=== PATIENT | male | born 1950 | race Caucasian/White ===

== ENCOUNTER → 2016-09-05 09:06 | Outpatient (CLI) | payer MEDICARE, BC ==
[2015-06-27 06:21] VITALS: BMI 24.4
[~2016-09-05 09:06] MED LIST: ASPIRIN EC81 M1 PO; COUMADIN7.5 MG PO; LIPITOR40 MG PO; LOVENOX80 MG/0.8 SC; MULTI-DAY VITAM1 TAB PO; TOPROL XL25 MG PO
== END | disposition home or self-care (01) ==
LOC: D.CT 08-20 11:30
DX: J98.4 Other disorders of lung (principal)

== ENCOUNTER → 2017-06-10 10:13 | Outpatient (CLI) | payer MEDICARE, BC ==
[2015-06-27 06:21] VITALS: BMI 24.4
== END | disposition home or self-care (01) ==
LOC: D.CT 06-09 11:30
DX: R91.1 Solitary pulmonary nodule (principal)

== ENCOUNTER → 2018-07-06 08:32 | Outpatient (CLI) | payer MEDICARE, BC ==
[2015-06-27 06:21] VITALS: BMI 24.4
== END | disposition home or self-care (01) ==
LOC: D.CT 08:00
DX: R91.8 Other nonspecific abnormal finding of lung field (principal)

== ENCOUNTER → 2019-09-10 13:24 | Outpatient (CLI) | payer MEDICARE, BC ==
[2015-06-27 06:21] VITALS: BMI 24.4
== END | disposition home or self-care (01) ==
LOC: D.HCCECHO 13:24
PROVIDERS: ATTEND Internal Medicine Cardiovascular Disease
DX: I25.10 Atherosclerotic heart disease of native coronary artery without angina pectoris (principal)